=== PATIENT | female | born 1960 | race Hispanic/Latino ===

== ENCOUNTER 2016-12-13 15:19 | Emergency (ER) | payer MEDICAID ==
[2016-12-13 15:20] VITALS: BMI 19.4
--- NOTE | 2016-12-13 16:37 | ED PDOC ---
Arrival/HPI - General Chief Complaint: Upper Extremity Problem/Injury Time Seen by Provider: 12/13/16 16:00 Historian: Patient - History of Present Illness Narrative History of Present Illness (Text): 12/13/16 16:33 Patient reports injuring her R elbow radiating to the R shoulder 1 week ago when she hit it on a table. Otherwise: (-) other injury, (-) numbness. Past Medical History - Provider Review Nursing Documentation Reviewed: Yes - Infectious Disease Hx of Infectious Diseases: None - Reproductive Menopause: Yes - Cardiac Hx Cardiac Disorders: No - Pulmonary Hx Respiratory Disorders: No - Neurological Hx Neurological Disorder: No - HEENT Hx HEENT Disorder: No - Renal Hx Renal Disorder: No - Endocrine/Metabolic Hx Endocrine Disorders: No - Hematological/Oncological Hx Blood Disorders: No - Integumentary Hx Dermatological Disorder: No - Musculoskeletal/Rheumatological Hx Musculoskeletal Disorders: Yes Hx Arthritis: Yes Other/Comment: Bursitis, torn rotator cuff, - Gastrointestinal Hx Gastrointestinal Disorders: No - Genitourinary/Gynecological Hx Genitourinary Disorders: Yes Other/Comment: urterine fibroids and bleeding - Psychiatric Hx Psychophysiologic Disorder: Yes Hx Depression: Yes Hx Substance Use: No - Surgical History Hx Dilation and Curettage: Yes Other/Comment: arthroscopy - Anesthesia Hx Anesthesia: Yes Hx Anesthesia Reactions: No Hx Malignant Hyperthermia: No Family/Social History - Physician Review Nursing Documentation Reviewed: Yes Family/Social History: No Known Family HX Smoking Status: Heavy Smoker > 10 Cigarettes Daily Hx Alcohol Use: Yes Frequency of alcohol use: Socially Hx Substance Use: No Allergies/Home Meds Allergies/Adverse Reactions: Allergies cortisone Allergy (Verified 12/13/16 15:34) ANAPHYLAXIS Penicillins Allergy (Verified 12/13/16 15:34) ANAPHYLAXIS sulfur Allergy (Uncoded 12/13/16 15:34) ANAPHYLAXIS Home Medications: Home Meds Medication Instructions Recorded Confirmed Ibuprofen [Motrin Tab] 1 tab PO PRN PRN 02/28/16 12/13/16 Oxycodone HCl/Acetaminophen 1 tab PO QID 02/28/16 12/13/16 [Percocet 7.5-325 mg Tablet] Review of Systems - Review of Systems Constitutional: Normal. absent: Fatigue, Weight Change, Fevers Musculoskeletal: Normal, Arthralgias (chronic shoulder pain). absent: Back Pain , Neck Pain Skin: Normal. absent: Rash, Pruritis, Skin Lesions Physical Exam - Physical Exam Narrative Physical Exam (Text): 12/13/16 16:34 GENERAL APPEARANCE: Patient is awake, alert, oriented x 3, in mild painful distress. SKIN: Warm, dry, (-) rash, (-) lesions. ELBOW: (+) Tenderness, (-) swelling, (-) ecchymosis of the medial aspect; (-) decreased ROM, (-) effusion. (-) distal neurovascular deficit + 2 point discrimination, including extension of wrist and digits. Remainder of arm, including shoulder and wrist: Nontender, (-) edema, (-) ecchymosis, (+) FROM. Vital Signs Temp Pulse Resp BP Pulse Ox 12/13/16 16:48 98.6 F 78 18 128/79 100 12/13/16 15:28 124/77 Medical Decision Making ED Course and Treatment: 12/13/16 16:35 56 yo F c/o 1 week h/o R elbow pain. Likely contusion, to r/o a fracture. XR ordered, given tramadol for pain. XR R elbow: no fracture, no dislocation, as read by PA Patient advised that official radiology read of XR is still pending and will call the patient if there is any discrepancy within 24 hours. X-ray results discussed with the patient. Simone wrap and sling applied. Based on history, exam and diagnostic results, patient likely sustained a contusion. Plan will be for outpatient follow-up with PMD. Advised to continue taking Motrin for pain, prescription provided for tramadol. Patient states she fully agrees with and understands discharge instructions. States that she agrees with the plan and disposition. Verbalized and repeated discharge instructions and plan. I have given the patient opportunity to ask any additional questions. Follow up with primary care physician in 1-2 days without fail. Advised to take medication as prescribed. Return to the emergency room at any time for any new or worsening symptoms. - RAD Interpretation Radiology Orders: 12/13/16 16:00 ELBOW RIGHT 3 VIEWS ROUTINE [RAD] Stat - Medication Orders Current Medication Orders: Discontinued Medications Tramadol HCl (Ultram) 50 mg PO STAT STA Stop: 12/13/16 16:01 Last Admin: 12/13/16 16:21 Dose: 50 mg - PA / DRUGLESS PHYSICIAN / Resident Statement MD/DO has reviewed & agrees with the documentation as recorded. Disposition/Present on Arrival - Present on Arrival Any Indicators Present on Arrival: No History of DVT/PE: No History of Uncontrolled Diabetes: No Urinary Catheter: No History of Decub. Ulcer: No History Surgical Site Infection Following: None - Disposition Have Diagnosis and Disposition been Completed?: Yes Diagnosis: Contusion of elbow, right Disposition: HOME/ ROUTINE Disposition Time: 16:37 Patient Plan: Discharge Condition: GOOD Discharge Instructions (ExitCare): Contusion in Adults (ED) Print Language: IRISH Additional Instructions: Thank you for letting us take care of you today. You were treated for right elbow contusion. The emergency medical care you received today was directed at your acute symptoms. If you were prescribed any medication, please fill it and take as directed. It may take several days for your symptoms to resolve. Return to the Emergency Department if your symptoms worsen, do not improve, or if you have any other problems. Please contact your doctor in 2 days for re-evaluation and follow up. Bring any paperwork you were given at discharge with you along with any medications you are taking to your follow up visit. Our treatment cannot replace ongoing medical care by a primary care provider (PCP) outside of the emergency department. Thank you for allowing the [facility] team to be part of your care today. Prescriptions: traMADol [Ultram] 50 mg PO TID #15 tab Forms: WORK NOTE
[2016-12-13 16:49] VITALS: BP 128/79; PULSE 78; RESP 18; TEMP 98.6; O2SAT 100
--- NOTE | 2016-12-13 18:01 | RAD ---
HISTORY: trauma COMPARISON: No prior FINDINGS: BONES: Normal. No fracture. JOINTS: Normal. No osteoarthritis. SOFT TISSUE: Normal. OTHER FINDINGS: None . IMPRESSION: Normal Bone Xray.
== END 2016-12-13 16:49 | disposition home or self-care (01) ==
LOC: ED 15:19
DX: S50.01XA Contusion of right elbow, initial encounter (principal); W22.03XA Walked into furniture, initial encounter; Y92.89 Other specified places as the place of occurrence of the external cause